=== PATIENT | male | born 1970 | race Caucasian/White ===

== ENCOUNTER → 2018-12-14 | Outpatient (CLI) | payer BC ==
--- NOTE | 2018-12-14 15:59 | CT ---
EXAMINATION TYPE: CT brain wo con DATE OF EXAM: 12/14/2018 COMPARISON: NONE HISTORY: Headache and right sided facial pain after dental procedure x1 week ago. CT DLP: 1073.1 mGycm. Automated Exposure Control for Dose Reduction was Utilized. TECHNIQUE: CT scan of the head is performed without contrast. FINDINGS: There is no acute intracranial hemorrhage, mass effect, or midline shift identified. The ventricles and sulci are symmetrically prominent compatible with mild age-related volume loss.. The globes are intact and the visualized sinuses are clear. There is complete opacification of the right maxillary sinus with chronic ostiomeatal thickening. This extends into the ethmoid sinuses and poste rior nasopharynx is well into the right frontal sinus and sphenoid sinus. The left paranasal sinuses appear overall well aerated other than scant mucosal thickening in the left ethmoid air cells. IMPRESSION: 1. No acute intracranial hemorrhage, mass effect, or midline shift is seen. 2. Extensive and severe acute on chronic sinusitis of the right paranasal sinuses.
--- NOTE | 2018-12-14 16:03 | CT ---
EXAMINATION TYPE: CT facial bones wo con DATE OF EXAM: 12/14/2018 COMPARISON: None HISTORY: Headache and right sided facial pain after dental procedure x1 week ago. CT DLP: 686.3 mGycm CONTRAST: 0 mL of Isovue 300 The paranasal sinuses are examined in the axial plane at 2 mm thick sections. Reconstructed images i n the coronal plane were obtained. There is dental amalgam scatter artifact Complete opacification of the right maxillary sinus. There is opacification of the right frontal sinu s with scattered air-fluid levels. Anterior and middle right ethmoid air cells are opacified. Some mi nimal mucosal thickening is within the right sphenoid sinus. Remaining paranasal sinuses are clear. The septum is evaluated. There is septal deviation to the left. Left ostiomeatal unit is patent. Right ostiomeatal unit is obstructed. IMPRESSIONS: 1. Right maxillary, frontal, ethmoid air cell opacifications compatible some sinusitis. 2. No suspicious dental anomaly is identified
== END | disposition home or self-care (01) ==
LOC: RADCTMAIN 15:37
PROVIDERS: ATTEND Internal Medicine
DX: J01.40 Acute pansinusitis, unspecified (principal); J32.4 Chronic pansinusitis
CPT/HCPCS: 70450; 70486